=== PATIENT | female | born 1980 | race Caucasian/White ===

== ENCOUNTER 2020-09-30 10:48 | Emergency (ER) | payer MEDICAID, OTHER ==
[~2020-09-30] VITALS: Ht 154.9 cm; Wt 77.3 kg
[~2020-09-30 10:48] MED LIST: HYDR-4061 PO; IBUP-2310 PO
[2020-09-30] MEDS ORDERED: ACETAMINOPHEN/CODEINE 300-30 MG TABLET PO ONE (12:15)
[2020-09-30] MEDS ORDERED: KETOROLAC TROMETHAMINE 60 MG/2 ML VIAL IM ONE (12:15)
[2020-09-30] MEDS ORDERED: BACLOFEN 10 MG TABLET PO ONE (12:15)
[2020-09-30 13:24] VITALS: BP 118/76
== END 2020-09-30 13:33 | disposition home or self-care (01) ==
LOC: EMS 10:52
DX: S13.8XXA Sprain of joints and ligaments of other parts of neck, initial encounter (principal); X58.XXXA Exposure to other specified factors, initial encounter; Y93.89 Activity, other specified; Y92.89 Other specified places as the place of occurrence of the external cause; Y99.8 Other external cause status
CPT/HCPCS: 72040; 96372; 99283; J1885